=== PATIENT | male | born 1960 | race Caucasian/White ===

== ENCOUNTER 2019-09-08 12:00 | Outpatient (CLI) | payer OTHER, SELFPAY | END 2019-09-08 12:01 | disposition home or self-care (01) | LOC: SLEEP 09-09 11:48 | PROVIDERS: Visit Provider Nurse Practitioner Family | DX: G47.10 Hypersomnia, unspecified (principal) | CPT/HCPCS: G0399 ==

== ENCOUNTER 2022-12-13 09:10 | Emergency (ER) | payer OTHER, SELFPAY ==
[2022-12-13] VITALS (26 sets, daily range): BP systolic 179–220; BP diastolic 98–107; PULSE 48–73; RESP 7–21; TEMP 36.8; O2SAT 96–99
--- NOTE | 2022-12-13 09:12 | ECG_ITS ---
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 Measurements Intervals [place] Rate: 44 P: 41 NC: 238 QRS: 2 QRSD: 104 T: 29 QT: 467 QTc: 404 Interpretive Statements SINUS BRADYCARDIA WITH FIRST DEGREE AV BLOCK No previous ECG available for comparison Electronically Signed On 12-13-2022 20:50:16 CDT by Ann-Marie Robertson M.D. [id number] f
--- NOTE | 2022-12-13 09:12 | XRR_ITS ---
PROCEDURE INFORMATION: Exam: XR Chest Exam date and time: 12/13/2022 9:59 AM Age: 62 years old Clinical indication: Pain; Angina pectoris; Additional info: Chest pain TECHNIQUE: Imaging protocol: Radiologic exam of the chest. Views: 1 view. COMPARISON: No relevant prior studies available. FINDINGS: Lungs: Unremarkable. No consolidation. Pleural spaces: Unremarkable. No pleural effusion. No pneumothorax. Heart/Mediastinum: Unremarkable. No cardiomegaly. Bones/joints: Mild degenerative changes of the acromioclavicular joints. XR/XR chest 1V portable 09999 IMPRESSION: No acute findings.
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
--- NOTE | 2022-12-13 09:31 | PC.PHAR ---
pt states he takes care of his own medications-pt states he has been taking 1/4 tab qam of metoprolol-hctz 100-25mg ext shows last filled 11/22/22 90d/s 0.5 tab daily-pt states takes no otc medications-notes are made in the pharmacy comments
[2022-12-13 09:38] LABS: Basophils # 0.1 10^3/uL (0.0-0.1); Basophils % 0.5 %; Eosinophils # 0.2 10^3/uL (0.0-0.8); Eosinophils % 1.7 %; Hematocrit 46.6 % (37-53); Lymphocytes # 2.7 10^3/uL (0.8-4.8); Lymphocytes % 28.6 %; Mean Corpuscular HGB Conc 33.9 g/dL (30-55); Mean Corpuscular Volume 88.4 fl (82-101); Mean Platelet Volume 9.6 fL (7.4-10.4); Monocytes # 0.8 10^3/uL (0.2-0.9); Monocytes % 8.1 %; Neutrophils # 5.71 10^3/uL (1.8-7.7); Neutrophils % 60.8 %; Nucleated Red Blood Cells % 0 %; Platelet Count 254 10^3/cmm (157-399); Red Blood Count 5.27 10^6/uL (3.85-5.65); Red Cell Distribution Width 12.2 % (12.1-15.1)
[2022-12-13] MEDS: morphine 4 mg/mL SDV 1 mL IVP (09:50)
[2022-12-13] MEDS: ondansetron 2 mg/ML SDV 2 mL 4 MG IVP (09:50)
[2022-12-13 10:00] LABS: Alanine Aminotransferase 27 U/L (0-41); Albumin Level 4.8 g/dL (3.5-5.2); Alkaline Phosphatase 108 U/L (40-130); Anion Gap 17.1 (5-19); Aspartate Amino Transferase 21 U/L (0-40); Blood Urea Nitrogen 13 mg/dL (8-23); Calcium 9.3 mg/dL (8.5-10.5); Carbon Dioxide 25 mmol/L (22-29); Chloride 101 mmol/L (98-107); Globulin 2.2 g/dL (1.3-4.6); Glomerular Filtration Rate 76.2 mL/min (90-130); Glucose 155 mg/dL (65-115); Lipase 37 U/L (13-60); Osmolality Calculated 291 mOsm/kg (285-295); Potassium 4.1 mmol/L (3.5-5.1); Sodium 139 mmol/L (136-145); Total Bilirubin 0.4 mg/dL (0.15-1.2)
[2022-12-13 10:03] LABS: Troponin(5th) Baseline 8 ng/L (0-15)
[2022-12-13 10:04] LABS: Add Urine Microscopic? NO; Charge for UA Resulting for Rev
[2022-12-13 10:07] LABS: Bilirubin Urine Neg (Negative); Blood Urine Neg (Negative); Glucose Urine UA Norm (Normal); Ketones Urine Negative (Negative); Leukocyte Esterase Urine Negative (Negative); Nitrate Urine Negative (Negative); Protein Urine Neg (Negative); Urine Appearance Clear (CLEAR); Urine Color Yellow (Yellow); Urobilinogen Urine Norm (Negative); pH Urine 5 (5-7)
[2022-12-13] MEDS: hyDRALAzine 20 mg/mL INJ 1 mL 10 MG IVP (10:33)
[2022-12-13] MEDS: metoclopramide 5 mg/mL SDV 2 mL 10 MG IVP (10:49)
[2022-12-13] MEDS: ketorolac 30 mg/mL INJ IVP (10:49)
--- NOTE | 2022-12-13 11:25 | CT_ITS ---
WS: [id number] CTA CHEST WITH CT ABDOMEN AND PELVIS. HISTORY: Sudden onset of chest pain, back pain. Nausea and sweating. TECHNIQUE: CT angiogram is performed through the chest. Additional imaging is performed through the a bdomen and pelvis with IV contrast. Sagittal and coronal reformats have been submitted. MIP imaging also reviewed. All CT scans at [facility] use at least one of these dose optimization techniqu es: automated exposure control; mA and/or kV adjustment per patient size (includes targeted exams whe re dose is matched to clinical indication); or iterative reconstruction. Contrast: Omnipaque 350; 95 cc IV. DLP: 2267.58 mGy.cm COMPARISON: None. Chest CTA: Adequate opacification of the pulmonary arteries. No central filling defects. Normal size pulmonary artery and aorta. No dissection or aneurysm. No mediastinal hemorrhage. Mild enlargement of the LEFT heart chambers. Scattered mild coronary artery calcifications. No adenopathy. No pneumonia. No pneumothorax. No pericardial or pleural effusions. Abdomen CT: Diffuse hepatic steatosis. Normal pulmonary vein. Normal gallbladder and spleen. There ar e a few splenic granulomata. No adrenal mass. No renal obstruction. Pancreas: There is a soft tissue mass associated with the distal pancreas. Mass is well-circumscribed involving the tail of the pancreas. The splenic artery is closely associated with this mass and exte nds posteriorly to the pancreatic mass. Mass is of decreased attenuation but there is some enhancemen t versus increased protein within the mass. No duct dilatation proximally. No additional pancreas abn ormality. There are few very small mesenteric lymph nodes and mild mesenteric stranding. No ascites. Normal appearance of the GI tract. No evidence for appendicitis. There are a few scattered diverticul a in the distal colon with no acute diverticulitis. Pelvic CT: Negative urinary bladder. No filling defects. No free fluid or adenopathy in the pelvis. No destructive bone lesions. IMPRESSION: 1. Normal thoracic and abdominal aorta. There is no dissection or aneurysm. 2. Mild LEFT heart enlargement. 3. Solid well-circumscribed nonvascular mass associated with the tail of the pancreas. Pancreatic abdelrahman plasm/adenocarcinoma needs to be excluded. 4. Very mild sclerosing mesenteritis. No adenopathy. 5. No adenopathy within the chest, abdomen or pelvis and no free fluid.
[2022-12-13 11:27] LABS: D Dimer 0.47 ug/mLFEU (0-0.59)
[2022-12-13] MEDS: iohexol 350 mg/mL 500 mL Btl (per mL) IV (11:28)
--- NOTE | 2022-12-13 11:59 | ECG_ITS ---
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 Measurements Intervals [place] Rate: 63 P: 57 NM: 251 QRS: -1 QRSD: 105 T: 26 QT: 427 QTc: 439 Interpretive Statements SINUS RHYTHM WITH FIRST DEGREE AV BLOCK Compared to ECG 12/13/2022 09:16:36 Sinus bradycardia no longer present Electronically Signed On 12-13-2022 20:59:02 CDT by Ann-Marie Robertson M.D. [email or web address] [employer]/store/OM/[id number]
[2022-12-13 12:00] LABS: Troponin 5 2HR 7.18 ng/L (0-15); Troponin 5 2HR Delta -0.82 ABS# (0-10)
--- NOTE | 2022-12-13 14:08 | PC.SOCIAL ---
GI Referral Spoke with patient's , they would like to go to [facility]. referral faxed at this time.
== END 2022-12-13 13:20 | disposition home or self-care (01) ==
PROVIDERS: Emergency Provider Physician Assistant; PCP Nurse Practitioner Family
DX: M54.6 Pain in thoracic spine (principal); E78.5 Hyperlipidemia, unspecified; I10 Essential (primary) hypertension
CPT/HCPCS: 36415; 71045; 71275; 74174; 80053; 81003; 83690; 84484; 85025; 85378; 93005; 96374; 96375; 99285; J0360; J1885; J2270; J2405; J2765; Q9967